=== PATIENT | female | born 1975 | race Hispanic/Latino ===

== ENCOUNTER 2017-08-15 12:33 | Emergency (ER) | payer OTHER ==
--- NOTE | 2017-08-15 12:39 | ED.PDOC ---
History of Present Illness - General Chief Complaint: Abdominal Pain Stated Complaint: abdominal pain Time Seen by Provider: 08/15/17 12:37 Information Source: patient, RN notes reviewed, Vital Signs reviewed Additional Information: Pt with persistent RUQ/Epigastric tenderness worse with certain movements. Patient states this started after Thanksgiving. She has gone to [facility] twice in the past 5 days and she was supposed to get a RUQ U/S tomorrow. - History of Present Illness Abdominal Pain Onset Location: RUQ, epigastric Pain Radiation: no radiation Quality: moderate, aching, cramping, sharpness Timing/Duration: 1 week Improving Factors: nothing Worsening Factors: movement Associated Symptoms: nausea/vomiting Review of Systems - Review of Systems Constitutional: States: no symptoms reported EENTM: States: no symptoms reported Respiratory: States: no symptoms reported Cardiology: States: no symptoms reported Gastrointestinal/Abdominal: States: see HPI, abdominal pain Genitourinary: States: no symptoms reported Musculoskeletal: States: no symptoms reported Skin: States: no symptoms reported Neurological: States: no symptoms reported Endocrine: States: no symptoms reported Hematologic/Lymphatic: States: no symptoms reported Past Medical History (General) - Patient Medical History Hx Hypertension: Yes Family Medical History - Family History Mother Family History: Unknown Living Status: Unknown Physical Exam - Physical Exam General Appearance: Alert, Comfortable, Other - mild distress with abdominal exam Eyes, Ears, Nose, Throat Exam: PERRL/EOMI, pharynx normal Neck: non-tender, full range of motion, supple, normal inspection Respiratory: no respiratory distress, no accessory muscle use Cardiovascular/Chest: regular rate, rhythm Gastrointestinal/Abdominal: soft, tenderness - RUQ, + Hightower's sign Extremity: normal range of motion, non-tender, normal inspection 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 - Results/Orders Results/Orders: Limited Bedside RUQ U/S suggestive of GB wall thickening measuring 5mm. No obvious stones. Possible sludge in GB. Official U/S Report: EXAM DESCRIPTION: US Gall Bladder CLINICAL HISTORY: suspect cholecystitis COMPARISON: None available. TECHNIQUE: Routine sonographic images of the right upper quadrant of the abdomen were acquired and submitted for review. FINDINGS: Liver: The liver is normal in size measuring 12.7 cm at the midclavicular line. Parenchymal echogenicity is within normal limits. Bile ducts- Intrahepatic and extrahepatic bile ducts not dilated with common bile duct measuring 3.2 mm. Gallbladder: Normal without sludge, calculi, or polyps. The gallbladder wall is not thickened. No pericholecystic fluid. Pancreas: The pancreas is not well-visualized secondary to overlying bowel gas. Right kidney: Right kidney measures 10.1 x 5.1 x 4.7 cm. Cortical echogenicity is within normal limits. No hydronephrosis. Aorta Inferior vena cava: visualized portions appear normal Ascites: none IMPRESSION: Unremarkable sonographic evaluation of the right upper quadrant of the abdomen. In particular, the gallbladder is unremarkable without evidence of cholelithiasis, wall thickening, or pericholecystic fluid. If there is concerning for gallbladder dysfunction, nuclear medicine hepatobiliary scan with ejection fraction is recommended for further evaluation/characterization. Electronically signed by: Lee De Leon MD 08/15/2017 5:09 PM M[employer]IM[employer] SPECIALIST Dictated By: Lee De Leon MD Signed By: Lee De Leon MD Dictated Date/Time: 08/15/17 1346 Transcribed Date/Time: 08/15/17 1346 Manager Oncology: Signed Date/Time: 08/15/17 6413 CC: Laboratory Results - last 24 hr 08/15/17 08/15/17 08/15/17 12:38 12:38 13:59 WBC 7.5 RBC 4.77 Hgb 13.4 Hct 39.5 MCV 82.8 MCH 28.0 MCHC 33.9 RDW 13.8 Plt Count 204 MPV 10.1 Absolute Neuts (auto) 4.00 Absolute Lymphs (auto) 2.60 Absolute Monos (auto) 0.80 Absolute Eos (auto) 0.00 Absolute Basos (auto) 0.10 Neutrophils % 52.8 Lymphocytes % 35.4 Monocytes % 10.2 H Eosinophils % 0.6 L Basophils % 1.0 Sodium 140 Potassium 3.4 L Chloride 106 Carbon Dioxide 22 Anion Gap 15.4 BUN 12 Creatinine 0.62 BUN/Creatinine Ratio 19.4 Random Glucose 90 Serum Osmolality 278.7 Calcium 9.2 Total Bilirubin 0.7 AST 19 ALT 17 Alkaline Phosphatase 60 Serum Total Protein 8.1 Albumin 4.4 Globulin 3.7 H Albumin/Globulin Ratio 1.2 Urine Color Urine Appearance Urine pH Ur Specific Frost Urine Protein Urine Glucose (UA) Urine Ketones Urine Blood Urine Nitrite Urine Bilirubin Urine Urobilinogen Ur Leukocyte Esterase Urine RBC Urine WBC Ur Epithelial Cells Urine Bacteria Urine HCG, Qual Negative 08/15/17 13:59 WBC RBC Hgb Hct MCV MCH MCHC RDW Plt Count MPV Absolute Neuts (auto) Absolute Lymphs (auto) Absolute Monos (auto) Absolute Eos (auto) Absolute Basos (auto) Neutrophils % Lymphocytes % Monocytes % Eosinophils % Basophils % Sodium Potassium Chloride Carbon Dioxide Anion Gap BUN Creatinine BUN/Creatinine Ratio Random Glucose Serum Osmolality Calcium Total Bilirubin AST ALT Alkaline Phosphatase Serum Total Protein Albumin Globulin Albumin/Globulin Ratio Urine Color Yellow Urine Appearance Clear Urine pH 7.0 Ur Specific Frost 1.015 Urine Protein Negative Urine Glucose (UA) Negative Urine Ketones 40 H Urine Blood Large H Urine Nitrite Negative Urine Bilirubin Negative Urine Urobilinogen 0.2 Ur Leukocyte Esterase Negative Urine RBC 20-30 H Urine WBC 0-1 Ur Epithelial Cells 1-3 Urine Bacteria Rare Urine HCG, Qual Departure - Departure Clinical Impression: Biliary colic Time of Disposition: 15:30 Disposition: Discharge to Home or Self Care Condition: Fair Departure Forms: ED Discharge - Pt. Copy, Patient Portal Self Enrollment Instructions: DI for Abdominal Pain-Adult, DI for Cholecystitis Diet: low fat, low cholesterol Referrals: Ramiro Aguirre MD [Active Staff] - 1-2 Days (Call Dr. Aguirre's office in am 16 August 2017 to schedule appointment. ) Prescriptions: Acetamin W/Cod #3 Tab [Tylenol #3 Tab] 1 ea PO Q4-6H PRN #20 tab PRN Reason: Pain -- Moderate To Severe Home Medications: Ambulatory Orders Acetamin W/Cod #3 Tab [Tylenol #3 Tab] 1 ea PO Q4-6H PRN #20 tab 08/15/17 Pantoprazole Sodium 40 mg PO DAILY 08/15/17 Additional Instructions: Call Dr. Aguirre's office first thing in the morning July to schedule an appointment. No Fat diet. Stay well hydrated with water.
[2017-08-15 12:52] VITALS: BP 150/91; TEMP 97.4; O2SAT 100
[2017-08-15] MEDS ORDERED: LACTATED RINGERS 1,000 ML IVS ONE (13:22)
--- NOTE | 2017-08-15 17:10 | US ---
EXAM DESCRIPTION: US Gall Bladder CLINICAL HISTORY: suspect cholecystitis COMPARISON: None available. TECHNIQUE: Routine sonographic images of the right upper quadrant of the abdomen were acquired and submitted for review. FINDINGS: Liver: The liver is normal in size measuring 12.7 cm at the midclavicular line. Parenchymal echogenicity is within normal limits. Bile ducts- Intrahepatic and extrahepatic bile ducts not dilated with common bile duct measuring 3.2 mm. Gallbladder: Normal without sludge, calculi, or polyps. The gallbladder wall is not thickened. No pericholecystic fluid. Pancreas: The pancreas is not well-visualized secondary to overlying bowel gas. Right kidney: Right kidney measures 10.1 x 5.1 x 4.7 cm. Cortical echogenicity is within normal limits. No hydronephrosis. Aorta & Inferior vena cava: visualized portions appear normal Ascites: none IMPRESSION: Unremarkable sonographic evaluation of the right upper quadrant of the abdomen. In particular, the gallbladder is unremarkable without evidence of cholelithiasis, wall thickening, or pericholecystic fluid. If there is concerning for gallbladder dysfunction, nuclear medicine hepatobiliary scan with ejection fraction is recommended for further evaluation/characterization. Electronically signed by: Lee De Leon MD 08/15/2017 5:09 PM FITNESS/WELLNESS DIRECTOR
== END 2017-08-15 17:24 | disposition home or self-care (01) ==
LOC: ER 12:33
DX: K80.20 Calculus of gallbladder without cholecystitis without obstruction (principal); I10 Essential (primary) hypertension
CPT/HCPCS: 36415; 76705; 80053; 81001; 81025; 85025; J7120

== ENCOUNTER → 2017-08-23 | Outpatient (CLI) | payer OTHER ==
--- NOTE | 2017-08-23 17:08 | RAD ---
EXAM DESCRIPTION: Abdomen Flat Upright CLINICAL HISTORY: 42 years Female, EPIGASTRIC ABDOMINAL PAIN COMPARISON: None. FINDINGS: Two views of the abdomen demonstrate clear lung bases with no free abdominal air. Bowel gas pattern is normal without obstruction or ileus or dilation or significant air-fluid levels. Two left-sided pelvic phleboliths are noted. Soft tissue masses or additional calcifications are not apparent. Moderate degenerative disease at the lumbosacral junction is evident. IMPRESSION: Nonspecific abdomen two views. Electronically signed by: Eric Haynes MD 08/23/2017 5:07 PM [employer] SALESPERSON
== END | disposition home or self-care (01) ==
LOC: RAD 14:16
PROVIDERS: ATTEND Surgery
DX: R10.13 Epigastric pain (principal)